=== PATIENT | female | born 1975 | race Caucasian/White ===

== ENCOUNTER 2021-03-08 18:03 | Emergency (ER) | payer OTHER, SELFPAY ==
--- NOTE | ~2021-03-08 | US_ITS ---
EXAMINATION: US PELVIS CLINICAL INFORMATION: Left pelvic burning COMPARISON: CT abdomen pelvis 05/30/2018 TECHNIQUE: Ultrasound of the pelvis is performed using only transabdominal transducers along with Doppler. Transvaginal imaging was refused by the patient. FINDINGS: An anteverted uterus is present measuring 10.9 x 6.2 x 6.8 cm. No uterine masses are seen. The endometrium appears normal at 1.4 cm. The right ovary measures 3.8 x 2.0 x 2.5 cm for a volume of 9.9 mL and appears normal. The left ovary measured 2.7 x 1.5 x 2.5 cm for a volume of 5.3 cm and appeared normal. Doppler exam of both ovaries demonstrated normal arterial and venous Doppler signal. No free intraperitoneal fluid is seen US/US pelvic complete IMPRESSION: No significant abnormality is seen
--- NOTE | ~2021-03-08 | US_ITS ---
EXAMINATION: US PELVIS CLINICAL INFORMATION: Left pelvic burning COMPARISON: CT abdomen pelvis 05/30/2018 TECHNIQUE: Ultrasound of the pelvis is performed using only transabdominal transducers along with Doppler. Transvaginal imaging was refused by the patient. FINDINGS: An anteverted uterus is present measuring 10.9 x 6.2 x 6.8 cm. No uterine masses are seen. The endometrium appears normal at 1.4 cm. The right ovary measures 3.8 x 2.0 x 2.5 cm for a volume of 9.9 mL and appears normal. The left ovary measured 2.7 x 1.5 x 2.5 cm for a volume of 5.3 cm and appeared normal. Doppler exam of both ovaries demonstrated normal arterial and venous Doppler signal. No free intraperitoneal fluid is seen US/US pelvic ovarian doppler IMPRESSION: No significant abnormality is seen
[2021-03-08 19:18] LABS: Glucose Urine UA NEG (NEG); Leukocyte Esterase Urine NEG (NEG); Nitrite Urine NEG (NEG); Specific Gravity - Urine <= 1.005 (1.005-1.025); Urine Blood NEG (NEG); Urine Ketones NEG (NEG); Urine Protein NEG (NEG-TRACE)
[2021-03-08 19:19] LABS: Appearance Urine CLEAR; Color Urine STRAW
[2021-03-08 19:24] VITALS: BP 151/77; PULSE 77; RESP 18; TEMP 36.6; O2SAT 100; BMI 25.9
--- NOTE | 2021-03-08 21:46 | ED_ITS ---
HPI - Abdominal Pain General Chief Complaint: Abdominal Pain Stated Complaint: abdominal pain Time Seen by Provider: 03/08/21 21:46 Source: patient Mode of arrival: ambulatory History of Present Illness HPI narrative: This is a 45-year-old female with significant past medical history of regional pain syndrome and fibromyalgia who presents with a burning sensation to the left anterior iliac crest area without associated fever, chills, nausea, vomiting, diarrhea, urinary pain/running/frequency that initially started just prior to her menstrual cycle, then patient states that it resolved during her menstruation which ended yesterday, and now has resumed today. Patient has not tried any [id number] medications and still remains without constitutional symptoms. Patient denies any exacerbating or alleviating symptoms. Patient describes pain as burning and nonradiating. Related Data Allergies Allergy/AdvReac Type Severity Reaction Status Date / Time baclofen Allergy Unknown palpitations, Verified 03/08/21 19:23 palpatations diazepam [Valium] Allergy Unknown anxiety Verified 10/17/19 00:00 PANADOL COLD AND FLU Allergy Severe PALPITATION Uncoded 03/08/21 19:23 S Review of Systems Review of Systems Pertinent positives and negatives as stated in HPI 10 point review of systems otherwise negative. Physical Exam Vital Signs: Vital Signs: Last Vital Signs Temp 97.9 F 03/08/21 21:48 Pulse 69 03/08/21 23:00 Resp 18 03/08/21 23:00 BP 178/93 H 03/08/21 23:00 Pulse Ox 100 03/08/21 23:00 Body Mass Index 25.9 VITAL SIGNS: Reviewed. GENERAL: Well developed, well nourished, in no acute distress. HEAD: Normocephalic/atraumatic EYES: PERRLA, EOMI OROPHARYNX: no oral lesions noted, posterior pharynx clear LUNGS: Normal breath sounds. No adventitious sounds or accessory muscle use. SpO2<100> CARDIOVASCULAR: Regular rate and rhythm without noted murmurs ABDOMEN: Soft, non-tender on significant and deep palpation over the left flank/pelvic/left lower quadrant area, non-distended with bowel sounds. SKIN: Inspection of the skin reveals no rashes NEUROLOGIC: Alert and oriented x 4. Strength and sensation to light touch were grossly intact x 4. Course Course Course Narrative: This is a 45-year-old female with history and clinical presentation consistent with likely flare of fibromyalgia/regional pain syndrome symptoms, however will obtain basic labs as well as pelvic ultrasound as low clinical suspicion for renal colic/diverticulitis/obstructive symptoms. Review of all investigations only significant for noted anemia likely secondary to recent completion of menstrual cycle. Otherwise, there are no acute findings on review of all investigations and patient will be discharged home in stable condition with recommendations to follow-up with primary care provider. MDM - Abdominal Pain Lab Data Result diagrams: 03/08/21 21:57 03/08/21 21:57 Labs: Lab Results 03/08/21 03/08/21 03/08/21 Range/Units 19:12 19:12 21:57 WBC 8.6 (4.8-10.8) X10*3/uL RBC 4.60 (4.20-5.50) X10*6/uL Hgb 9.7 L (12.0-16.0) g/dl Hct 32.8 L (37-47) % MCV 71.3 L (80-98) fL MCH 21.1 L (27.0-33.0) pg MCHC 29.6 L (31.0-35.0) g/dl RDW 15.7 (11.0-16.0) % Plt Count 295 (160-400) X10*3/uL MPV 9.6 (9.4-12.3) fL Immature Gran % (Auto) 0.2 (0.0-0.4) % Neut % (Auto) 67.0 (45-73) % Lymph % (Auto) 26.0 (20-40) % [place] % (Auto) 5.4 (2-11) % Eos % (Auto) 0.9 (0-4) % Baso % (Auto) 0.5 (0-2) % Lymph # (Auto) 2.2 (1.2-4.9) X10*3/uL [place] # (Auto) 0.5 (0.1-1.2) X10*3/uL Eos # (Auto) 0.1 (0.0-0.4) X10*3/uL Baso # (Auto) 0.0 (0.0-0.2) X10*3/uL Abs Immat Gran (auto) 0.02 (0.00-0.03) X10*3/uL Absolute Neuts (auto) 5.8 (2.0-8.3) X10*3/uL Absolute Nucleated RBC 0.000 (0.0-0.012) X10*3/uL Nucleated RBC % (auto) 0.0 (0.0-0.2) /100WBC Sodium (135-145) mmol/L Potassium (3.3-5.1) mmol/L Chloride (96-108) mmol/L Carbon Dioxide (22-29) mmol/L Anion Gap (12-20) BUN (9-16) mg/dL Creatinine (0.5-1.4) mg/dL Estim Creat Clear Calc Estimated GFR Random Glucose (60-115) mg/dL Calcium (8.4-10.2) mg/dL Total Bilirubin (0.0-1.0) mg/dL AST (5-31) U/L ALT (0-31) U/L Alkaline Phosphatase (39-117) U/L Total Protein (6.5-8.0) g/dL Albumin (3.5-5.0) g/dL Lipase (8-78) U/L Urine Color STRAW Urine Appearance CLEAR Urine pH 6.0 (5.0-8.0) Ur Specific [place] <= 1.005 (1.005-1.025) Urine Protein NEG (NEG-TRACE) MG/DL Urine Glucose (UA) NEG (NEG) MG/DL Urine Ketones NEG (NEG) MG/DL Urine Blood NEG (NEG) Urine Nitrite NEG (NEG) Ur Leukocyte Esterase NEG (NEG) Urine RBC 0 (0) /HPF Urine WBC 0 (0-4) /HPF Ur Squamous Epith Cells TRACE /LPF Urine Bacteria NONE /LPF Urine Test NEGATIVE (NEGATIVE) 03/08/21 Range/Units 21:57 WBC (4.8-10.8) X10*3/uL RBC (4.20-5.50) X10*6/uL Hgb (12.0-16.0) g/dl Hct (37-47) % MCV (80-98) fL MCH (27.0-33.0) pg MCHC (31.0-35.0) g/dl RDW (11.0-16.0) % Plt Count (160-400) X10*3/uL MPV (9.4-12.3) fL Immature Gran % (Auto) (0.0-0.4) % Neut % (Auto) (45-73) % Lymph % (Auto) (20-40) % [place] % (Auto) (2-11) % Eos % (Auto) (0-4) % Baso % (Auto) (0-2) % Lymph # (Auto) (1.2-4.9) X10*3/uL [place] # (Auto) (0.1-1.2) X10*3/uL Eos # (Auto) (0.0-0.4) X10*3/uL Baso # (Auto) (0.0-0.2) X10*3/uL Abs Immat Gran (auto) (0.00-0.03) X10*3/uL Absolute Neuts (auto) (2.0-8.3) X10*3/uL Absolute Nucleated RBC (0.0-0.012) X10*3/uL Nucleated RBC % (auto) (0.0-0.2) /100WBC Sodium 140 (135-145) mmol/L Potassium 3.8 (3.3-5.1) mmol/L Chloride 105 (96-108) mmol/L Carbon Dioxide 26 (22-29) mmol/L Anion Gap 13 (12-20) BUN 12 (9-16) mg/dL Creatinine 0.77 (0.5-1.4) mg/dL Estim Creat Clear Calc 89.7 Estimated GFR > 60 Random Glucose 95 (60-115) mg/dL Calcium 9.7 (8.4-10.2) mg/dL Total Bilirubin 0.6 (0.0-1.0) mg/dL AST 18 (5-31) U/L ALT 14 (0-31) U/L Alkaline Phosphatase 69 (39-117) U/L Total Protein 7.6 (6.5-8.0) g/dL Albumin 4.5 (3.5-5.0) g/dL Lipase 35 (8-78) U/L Urine Color Urine Appearance Urine pH (5.0-8.0) Ur Specific [place] (1.005-1.025) Urine Protein (NEG-TRACE) MG/DL Urine Glucose (UA) (NEG) MG/DL Urine Ketones (NEG) MG/DL Urine Blood (NEG) Urine Nitrite (NEG) Ur Leukocyte Esterase (NEG) Urine RBC (0) /HPF Urine WBC (0-4) /HPF Ur Squamous Epith Cells /LPF Urine Bacteria /LPF Urine Test (NEGATIVE) Discharge Plan Discharge Clinical Impression: Fibromyalgia, Complex regional pain syndrome Patient Disposition: Home, Self-Care Instructions: Fibromyalgia (ED), Complex Regional Pain Syndrome (DC) Additional Instructions: 1. Resume all home medications as prescribed. 2. Recommend utilizing [id number] Tylenol/ibuprofen as needed for additional pain relief and follow-up with your primary care provider in the next 2-3 days for re-evaluation and further outpatient management. Return to the ER for any acute worsening of your symptoms. Referrals: Physician,Unknown [Primary Care Provider] - 2 days [facility] Past Medical History Source: nursing notes reviewed Social History Social History Patient Tobacco Use Status: Never used Tobacco Use of substances other than those prescribed or required for medical reasons: No Advance Directives: No Advance Directives Information Provided: Yes Patient : No
[2021-03-08 21:48] VITALS: BP 172/95; PULSE 78; RESP 18; TEMP 36.6; O2SAT 100
[2021-03-08 22:02] LABS: MANUAL DIFF FLAG NO
[2021-03-08 22:04] LABS: Basophils Percent Auto 0.5 % (0-2); Eosinophils Absolute Auto 0.1 X10*3/uL (0.0-0.4); Eosinophils Percent Auto 0.9 % (0-4); Hematocrit 32.8 % (37-47); Hemoglobin 9.7 g/dl (12.0-16.0); Imm Gran Abs Auto 0.02 X10*3/uL (0.00-0.03); Imm Gran Pct Auto 0.2 % (0.0-0.4); Lymphocytes Absolute Auto 2.2 X10*3/uL (1.2-4.9); Mean Corpuscular HGB Conc 29.6 g/dl (31.0-35.0); Mean Corpuscular Hemoglobin 21.1 pg (27.0-33.0); Mean Corpuscular Volume 71.3 fL (80-98); Mean Platelet Volume 9.6 fL (9.4-12.3); Monocytes Absolute Auto 0.5 X10*3/uL (0.1-1.2); Monocytes Percent Auto 5.4 % (2-11); Neutrophils Absolute Auto 5.8 X10*3/uL (2.0-8.3); Platelet Count 295 X10*3/uL (160-400); Red Cell Distribution Width 15.7 % (11.0-16.0); White Blood Count 8.6 X10*3/uL (4.8-10.8)
[2021-03-08 22:28] LABS: Alanine Aminotransferase 14 U/L (0-31); Albumin Level 4.5 g/dL (3.5-5.0); Alkaline Phosphatase 69 U/L (39-117); Anion Gap 13 (12-20); Aspartate Amino Transferase 18 U/L (5-31); Bilirubin Total 0.6 mg/dL (0.0-1.0); Blood Urea Nitrogen 12 mg/dL (9-16); Calcium 9.7 mg/dL (8.4-10.2); Carbon Dioxide 26 mmol/L (22-29); Chloride 105 mmol/L (96-108); Creatinine Clr Calc Pharmacy 89.7; Estimated Glomerular Filt Rate > 60; Glucose Random 95 mg/dL (60-115); Lipase 35 U/L (8-78); Potassium 3.8 mmol/L (3.3-5.1); Sodium 140 mmol/L (135-145); Total Protein 7.6 g/dL (6.5-8.0)
--- NOTE | 2021-03-08 22:30 | PC.NURSE ---
pt off floor to us. will medicate when back.
[2021-03-08 22:45] LABS: Urine Pregnancy NEGATIVE (NEGATIVE)
[2021-03-08 22:46] LABS: UPreg QC Valid YES
[2021-03-08 22:54] LABS: RBC Urine 0 /HPF (0); Squamous Epithelial Cell Urine TRACE /LPF; WBC Urine 0 /HPF (0-4)
[2021-03-08] MEDS: Acetaminophen 325 MG TABLET 975 MG PO (22:56)
[2021-03-08] MEDS: Ibuprofen 400 MG TABLET PO (22:57)
[2021-03-08 23:00] VITALS: BP 178/93; PULSE 69; RESP 18; O2SAT 100
--- NOTE | 2021-03-08 23:00 | PC.NURSE ---
PT MEDICATED PER MAR, AWAITING RESULTS. OFFERS NO COMPLAINTS AT THIS TIME.
== END 2021-03-08 23:42 | disposition home or self-care (01) ==
PROVIDERS: Emergency Provider Student in an Organized Health Care Education/Training Program
DX: M79.7 Fibromyalgia (principal); G90.50 Complex regional pain syndrome I, unspecified; D64.9 Anemia, unspecified
CPT/HCPCS: 36415; 76856; 80053; 81001; 81025; 83690; 85025; 93975; 99284; 99285

== ENCOUNTER 2021-07-01 12:17 | Outpatient (REF) | payer OTHER, SELFPAY | END 2021-07-01 12:18 | disposition home or self-care (01) | LOC: HO.LAB 12:17 | PROVIDERS: Visit Provider Internal Medicine | DX: Z20.822 Contact with and (suspected) exposure to COVID-19 (principal) | CPT/HCPCS: C9803; U0003; U0005 ==